=== PATIENT | female | born 1985 | race Caucasian/White ===

== ENCOUNTER 2023-10-18 06:10 | Day surgery (SDC) | payer OTHER, SELFPAY ==
[2023-10-18] VITALS (8 sets, daily range): BP systolic 78–116; BP diastolic 39–63; PULSE 51–92; RESP 12–16; TEMP 36.2–37; O2SAT 97–100
--- OUTSIDE RECORDS SUMMARY | 2023-10-18 06:15 | XMS_ITS | Clinical Summary ---
Author Name Unknown Organization [employer] [facility] Address [place], [place] [address] Care Team Providers Care Urology Teacher Name Role Phone NiloLouise lake MD Primary Care Provider Allergies Active Allergy Reactions Criticality Noted Date Comments Penicillins Rash 12/17/2013 Sulfa (Sulfonamide Antibiotics) 09/24/2006 Sulfasalazine *Unknown - Follow up needed 02/04/2014 Medications Medication Sig Dispensed Refills Start Date End Date Status vitamin-folic acid 1 mg ( RX) tablet/capsule Take 1 tablet by mouth once daily. 0 04/15/2018 Active triamcinolone (ARISTOCORT; KENALOG) 0.1 % creamIndications:Acut e eczema Apply topically to affected area(s) 3 times daily. 80 g 07/22/2018 Active clindamycin 1% (CLEOCIN-T) 1 % lotion APPLY LOTION TOPICALLY TO AFFECTED ACNE AREA(S) TWICE DAILY 04/22/2020 Active cholecalciferol, Vitamin D3, (Vitamin D-3) 5,000 unit tab tablet Take 1 Tablet (5,000 units) by mouth once daily. 0 03/17/2021 Active zinc sulfate (ZINC-15 ORAL) Take by mouth. Active Active Problems Problem Noted Date Diagnosed Date Pap smear for cervical cancer screening 08/10/19 24 Overview: 08/02/2023: NIL/HPV negative Plan: Pap and HPV in 5 years. Encounter for supervision of other normal , third trimester 07/08/2020 06/07/2020 Overview: Component Latest Ref Rng & Units 01/06/2021 HEMOGLOBIN 12.0 - 16.0 g/dL 11.7 (L) MCV 80 - 100 fL 92 Vaginal/Rectal OB Strep B PCR Negative Estimated Date of Delivery: 01/31/21 Patient's last menstrual period was 04/26/2020 (exact date). Last Tdap- 11/04/2020 Last Flu vaccine- 06-04-2020 Glucose (GTT) result- Component Latest Ref Rng & Units 11/04/2020 HEMOGLOBIN 12.0 - 16.0 g/dL 11.2 (L) MCV 80 - 100 fL 93 TREPONEMA PALLIDUM Negative Negative GLUCOSE,GESTATIONAL 65 - 139 mg/dL 136 20 week US: FINDINGS: Sonographic imaging demonstrates a single living intrauterine gestation. Fetus demonstrates a regular cardiac rate of 150 beats per minute. Fetus has a vertex orientation and longitudinal lie. The placenta lies anteriorly without evidence of placenta previa. Amniotic fluid volume appears normal. Single deepest vertical pocket: 4.1 cm. The cervix is closed and measures 3.2 cm in length. The composite ultrasound gestational age is calculated at 21 weeks 0 days with an estimated sonographic due date of January 27, 2021. Allergies Allergen Reactions ? ? Penicillins Rash ? ? Sulfa (Sulfonamide Antibiotics) ? ? Sulfasalazine *Unknown - Follow up needed OB History Para Term AB Living 2 1 1 0 0 1 SAB TAB Ectopic Multiple Live Births 0 0 0 0 1 # Outcome Date GA Lbr Nilton/2nd Weight Sex Delivery Anes PTL Lv 2 Current 1 Term 09/04/18 39w4d 3.15 kg (6 lb 15 oz) F Vag-Spont EPIDURAL JERARDO Name: November Create lab flowsheet for OB labs- Component Latest Ref Rng & Units 06/04/2020 06/04/2020 06/04/2020 1:56 PM 1:56 PM 1:56 PM RUBELLA IGG ANTIBODY Positive 1.32 ANTIBODY SCREEN Negative Negative SPECIMEN EXPIRATION DATE/TIME 06/07/20 23:59 HIV-1/HIV-2 ANTIBODY Non-Reactive Non-Reactive TREPONEMA PALLIDUM Negative Negative HBSAG Nonreactive Nonreactive ABORH O Rh Positive Past Medical History: . Date ? ? No Significant Past Medical History Past Surgical History: . Laterality Date ? ? NO PAST SURGERIES No data on file. Problems (from 06/04/20 to present) No problems associated with this episode. Alberta Fishman RN.....06/07/2020 7:59 AM Resolved Problems Problem Noted Date Diagnosed Date Resolved Date Marginal placenta previa 04/16/201809/2018 Encounter for supervision of normal first , third trimester 02/18/2018 06/07/2020 Overview: Estimated Date of Delivery: 09/07/18 Patient's last menstrual period was 12/01/2017 (exact date). Last Tdap- 06/10/2018 Last Flu vaccine- 02/18/2018 Glucose (GTT) result- Component Latest Ref Rng & Units 06/10/2018 HEMOGLOBIN 12.0 - 16.0 g/dL 11.9 (L) MCV 80 - 100 fL 95 GLUCOSE,GESTATIONAL 65 - 139 mg/dL 75 Component Latest Ref Rng & Units 08/15/2018 Culture No Group B Streptococcus isolated. Allergies Allergen Reactions ? ? Penicillins Rash ? ? Sulfa (Sulfonamide Antibiotics) Obstetric History T0 L0 SAB0 TAB0 Ectopic0 Multiple0 Live Births0 # Outcome Date GA Lbr Nilton/2nd Weight Sex Delivery Anes PTL Lv 1 Current Create lab flowsheet for OB labs- Component Latest Ref Rng & Units 01/07/2018 01/07/2018 01/07/2018 11:33 AM 11:33 AM 11:33 AM ANTIBODY SCREEN Negative Negative SPECIMEN EXPIRATION DATE/TIME 01/10/18 23:59 HEMOGLOBIN 12.0 - 16.0 g/dL 13.6 MCV 80 - 100 fL 93 RUBELLA IGG ANTIBODY Positive 1.47 HEMOGLOBIN A1C SCREENING <6.4 % 4.9 ABORH O Rh Positive HBSAG Nonreactive Nonreactive HEPATITIS C ANTIBODY Non-Reactive Non-Reactive HIV-1/HIV-2 ANTIBODY Non-Reactive Non-Reactive Past Medical History: Diagnosis Date ? ? No Significant Past Medical History Past Surgical History: Procedure Laterality Date ? ? NO PAST SURGERIES No data on file. 1st Problems (from 01/07/18 to present) No problems associated with this episode. YARELY Holder.....02/18/2018 2:33 PM Unspecified personality disorder 02/07/2007 11/26/2020 Encounters Date Type Department Care Team Description 10/01/2023 1:45 PM CDT Ancillary Procedure [facility] [address] [place] [address] 10/01/2023 Travel 09/11/2023 1:30 PM CDT Office Visit [facility] [address] [place] [address] Chelsey Prince MD Consult (Lipoma of chest referred by Dr. Corcoran) 09/11/2023 Travel 08/02/2023 8:50 AM LEATHER CLEANER Office Visit [facility] [address] [place] [address] Louise Corcoran MD Physical (37 yr/Been trying to get ) 08/02/2023 Travel from Last 3 Months Immunizations Name Administration Dates Next Due Influenza, IIV4 03/17/2021,06/04/2020,02/18/2018 ,03/06/2014 Tdap 11/04/2020,06/10/2018,02/04/2014 Family History Medical History Relation Name Comments Good Health Brother 1 Good Health Brother 2 Good Health Father Good Health Mother Relation Name Status Comments Brother 1 Brother 2 Father Mother Social History Tobacco Use Types Packs/Day Years Used Date Smoking Tobacco: Former Cigarettes 0.5 5 Smokeless Tobacco: Never Tobacco Cessation:Counseling Given: Yes Alcohol Use Standard Drinks/Week Comments Yes 1.7 (1 standard drink = 0.6 oz p ure alcohol) rare PHQ-2 Answer Date Recorded PHQ-2 TOTAL SCORE 0 08/02/2023 Social Connections Answer Date Recorded Frequency of Communication with Friends and Fami ly 0 08/02/2023 Financial Resource Strain Answer Date R ecorded Difficulty of Paying Living Expenses 3 08/02/2023 Difficulty of Paying Living Expenses Not on file 08/02/2023 Food Insecurity Answer Date Recorded Worried About Running Out of Food in the Last Ye ar 1 08/02/2023 Transportation Needs Answer Date Record ed Lack of Transportation (Medical) 1 08/02/2023 Housing Stability Answer Date Recorded Unable to Pay for Housing in the Last Year 1 08/02/2023 Sex and Gender Information Value Date Recorded Sex Assigned at Not on file Gender Identity Not on file Sexual Orientation Not on file Obstetrics History Para Term AB IAB SAB Ectopic Multiple Livin g Live Births 3 2 2 1 1 2 2 Date Outcome GA Total Labor Labor/2nd/3rd Weight Sex Delivery Anes PTL Jerardo A1 A5 Name Cl in 09/04 Term 39w 4d 3.15 kg (6 lb 15 oz) F Vag-Spont Epidu ral Lashaun ng Mckayla hardwick Complications:None Delivery Location:[facility] 01/22 Term 38w 5d 5h 30m 3.29 kg (7 lb 4 oz) M Vag Lashaun ng Todd hardwick, Maria Guadalupe Salter MD Complications:None Delivery Location:Hospital ( [facility]) 01/17 SAB Last Filed Vital Signs Vital Sign Reading Time Taken Comments Blood Pressure 91/62 09/11/2023 1:26 PM CDT Pulse 75 09/11/2023 1:26 PM CDT Temperature 36.5 ??C (97.7 ??F) 06/10/2018 9 :00 AM [employer]ATHER CLEANER Respiratory Rate - - Oxygen Saturation 99% 09/11/2023 1:2 6 PM CDT Inhaled Oxygen Concentration - - Weight 59.6 kg (131 lb 6.4 oz) 09/11/19 1:26 PM CDT with shoes Height 176.5 cm (5' 9.5) 08/02/2023 9: 01 AM [employer]ATHER CLE[employer]ER Body Mass Index 19.13 08/02/2023 9:01 AM LEATHER CLEANER Plan of Treatment Upcoming Encounters Date Type Department Care Team (Late st Contact Info) Description 10/18/2023 8:00 AM CDT Office Visit [facility] [address] [place] [phone] Chelsey Prince MD [address] [place] [address] Health Maintenance Due Date Last Done Comments COVID-19 vaccine series ( season) 2023 Influenza for age 9-49 02/24/2024 , 06/04/2020, 02/18/2018, Additional history exists BMI (ht and wt on same day) for age 18+ 08/02/2024 08/02/2023, 06/04/2020, 02/18/2018 Depression screening for age 12+ 08/02/2024 08/02/2023, 03/17/2021, 06/04/2020, Additional history exists Pap test for age 21-65 08/02/2028 , 08/02/2023, 04/04/2017 (Completed outside of [facility]) Tetanus booster 11/04/2030 11/04/2020, 05/25, 02/04/2014 Hepatitis C screening for age 18-79 Completed 01/07/2018 HIV for age 15-65 Completed 06/04/2020, 01/07/2018 Tdap Completed 11/04/2020, 05/25, 02/04/2014 Pneumococcal series for age 6-64 Aged Out No longer eligible based on patient's age to complete this topic Procedures Procedure Name Priority Date/Time Associated Diagnosis Comments US ABDOMEN SOFT TISSUE Routine 10/01/2023 1:44 PM CDT Lipoma of lateral chest wall ART INSTALLER THIN PREP PAP SCREEN IMAGED Routine 08/02/2023 9:20 AM [employer] Screening for cervical cancer HPV THIN PREP Routine 08/02/2023 9:20 AM [employer] CLE[employer]ER Screening for cervical cancer ANTI HIV 1/2 Routine 06/04/2020 1:56 PM [employer]ATHER CLE[employer]ER Initial obstetric visit in first trimester ANTI HCV Routine 01/07/2018 11:33 AM CDT Encounter for supervision of normal first in first trimester from Last 3 Months or Most Recently Relevant to Health Maintenance Results * US ABDOMEN SOFT TISSUE (10/01/2023 1:44 PM CDT) Anatomical Region Laterality Modality Abdomen Ultrasound 10/01/2023 2:38 PM CDT Narrative 10/01/2023 2:38 PM CDT For Patients: ??As a result of the Century Cures Act, medical imaging exams and procedure reports are released immediately into your electronic medical record. ??You may view this report before your referring provider. ??If you have questions, please contact your health care provider. Indication: Lipoma of the lateral chest wall Technique: Grayscale ultrasound of the right lateral chest wall performed. Comparison: None Findings: Circumscribed isoechoic mass within the subcutaneous fat measuring 3.7 x 3.2 x 1.5 cm. No fluid collection or suspicious mass. Impression: Subcutaneous lipoma. Dictated by Jacob Min MD @ 10/01/2023 2:38:07 PM (Electronically Signed) Procedure Note Jacob Min MD - 10/01/2023 For Patients: As a result of the Cures Act, medical imagingexams and procedure reports are released immediately into your electronicmedical record. You may view this report before your referring provider.If you have questions, please contact your health care provider. Indication: Lipoma of the lateral chest wall Technique: Grayscale ultrasound of the right lateral chest wall performed. Comparison: None Findings: Circumscribed isoechoic mass within the subcutaneous fat measuring 3.7 x3.2 x 1.5 cm. No fluid collection or suspicious mass. Impression: Subcutaneous lipoma. Dictated by Jacob Min MD @ 10/01/2023 2:38:07 PM (Electronically Signed) Chelsey Prince MD US * ART INSTALLER THIN PREP PAP SCREEN IMAGED [[id number]] (08/02/2023 9:20 AM LEATHER CLEANER) Case Report Gynecologic Cytology Report ? Case: [id number] ? Authorizing Provider: ??Louise Corcoran MD Collected: ? 08/02/2023 0920 ? Ordering Location: ? [facility] ?? Received: ?08/02/2023 0958 ? Clinic ? First Screen: ?Sandhya Guevara ? Specimen: ?ART INSTALLER ThinPrep Vial Screening, Cervical ? 08/09/2023 8:47 AM [facility] [employer] LABORATORY-C ENTRAL LABORATORY INTERPRETATION/ RESULT NEGATIVE FOR INTRAEPITHELIAL LESION OR MALIGNANCY (NIL) (none) 08/09/2023 8:47 AM [facility] [employer]-C ENTRAL LABORATORY IMEN ADEQUACY Satisfactory for evaluation Endocervical component present 08/09/2023 8:47 AM [facility] [employer] LABORATORY-C ENTRAL LABORATORY HPV REQUEST HPV and PAP 08/09/2023 8:47 AM [facility] [employer] LABORATORY-C ENTRAL LABORATORY Date of LMP 07/08/2023 08/09/2023 8:47 AM [employer] LABORATORY-C ENTRAL LABORATORY Last Pap Date 202008/09/2023 8:47 AM LE[employer]ER [employer]ER [employer] LABORATORY-C ENTRAL LABORATORY Last Pap Result NIL 8:47 AM [facility] [employer] ENTRAL LABORATORY Abnormal Pap or [place] Bx in last 5 years No 08/09/2023 8:47 AM [facility] [employer] LABORATORY-C ENTRAL LABORATORY Menstrual Status Regular Periods 08/09/2023 8:47 AM [facility] [employer] LABORATORY-C ENTRAL LABORATORY [place] Bx Done Today No 08/09/2023 8:47 AM [employer] [facility] Additional Information None given 08/09/2023 8:47 AM LEATHER CLEANER [facility] ENTRDC LABORATORY Comment: Cytology is screened at [facility] - [address], [place] [address] and [facility] - [address], [place] [address] and [facility] - [address] [place] [address] Interpreted at [facility] - [address] [place] [address] Automated Review Successful 08/09/2023 8:47 AM LEATHER CLE[employer]ER [facility] ENTRDC LABORATORY Comment:Specimen processed s uccessfully by automated colorer device, [employer] System, [employer] ANCILLARY TESTING ART INSTALLER HPV Ordered, Please see separate report 08/09/2023 8:47 AM [employer]ATH[employer]ER [facility] Note The pap test is a screening technique, not a diagnostic procedure. It is used primarily to screen for squamous cancers and precursor lesions. Published studies have shown that it is subject to both false negative and false positive results. The pap test should not be used as the sole means to diagnose or exclude pre-malignant and malignant lesions. 08/09/2023 8:47 AM LEATHER CLE[employer]ER [facility] Other (Cervical) Non-Blood / Unknown 08/02/2023 9:20 AM LEATHER CLE[employer]ER 08/02/2023 9:58 AM [employer] CLE[employer]ER Louise Corcoran MD PATHOLOGY/CYTOL OGY [facility] [address] [place] [address], * HPV HIGH RISK (08/02/2023 9:20 AM LEATHER CLEANER) TYPE 16 Negative Negative 08/06/2023 5:35 PM LEATHER CLE[employer]ER [facility] TR[facility] LABORATORY TYPE 18 Negative Negative 08/06/2023 5:35 PM LEATHER CLEANER [facility] TR[facility] LABORATORY OTHER HIGH RISK TYPES Negative Negative 08/06/2023 5:35 PM LEATHER CLEANER [facility] TRAL LABORATORY Other (Cervical) Non-Blood / Unknown 08/02/2023 9:20 AM LEATHER CLEANER 08/02/2023 4:32 PM LEATHER CLEANER Narrative [facility] - 08/06/2023 5:35 PM LEATHER CLEANER HPV types 16, 18, 31, 33, 35, 39, 45, 51, 52, 56, 58, 59, 66 and 68 DNA were undetectable or below the pre-set threshold. Methodology: Hany Duncan 4800 HPV Test Louise Corcoran MD MICROBIOLOGY [facility] [address] [place] [address], * ANTI HIV 1/2 (06/04/2020 1:56 PM LEATHER CLEANER) Pathologist [facility] HIV-1/HIV-2 ANTIBODY Non-Reacti ve Non-Reacti ve 06/04/2020 8:05 PM LEATHER CLEANER [facility] TRAL LABORATORY Comment:HIV-1 p24 and HIV-1/ HIV-2 Ab not detected. Blood BLOOD SPECIMEN / Unknown Venipuncture / Unknown 06/04/2020 1:56 PM LEATHER CLEANER 06/04/2020 1:57 PM LEATHER CLE[employer]ER Louise Corcoran MD SEND OUTS Performing Organization Address [facility]/ZIP Co de Phone Number [facility] [address] [place] [address], [place] * ANTI HCV (01/07/2018 11:33 AM CDT) Pathologist [facility] HEPATITIS C ANTIBODY Non-React flores Non-React flores 01/07/2018 6:23 PM CDT [facility] TRAL LABORATORY Comment:Antibodies to HCV no t detected; does not exclude the possibility of exposure to HCV. Blood BLOOD SPECIMEN / Unknown Venipuncture / Unknown 01/07/2018 11:33 AM CDT 01/07/2018 11:34 AM CDT Amanda WINTERS SEND OUTS [facility] [address] [place] [address], [place] from Last 3 Months or Most Recently Relevant to Health Maintenance Care Teams Urology Teacher Relationship Specialty Start Date End Date Louise Corcoran MD [address] [place] [address] PCP - General Family Practice 02/18/18
[2023-10-18] MEDS: LACTATED RINGERS 1000 ML 1,000 ML 100 ML IV (06:30)
[2023-10-18] MEDS: SODIUM CHLORIDE 0.9 % (FLUSH) 10 ML SYRINGE IVF (06:30)
[2023-10-18 06:41] LABS: Ur HCG Qualitative* Negative (Negative)
--- NOTE | 2023-10-18 07:25 | PM.GSHP ---
History of Present Illness History of Present Illness Date Seen: 10/18/23 Chief complaint: Surgery Narrative: Alejo Manzo is a 38 year old female who presents today for excision of a right chest wall mass. This note is to update her H& P. He has had no recent illness, no cough, no upper respiratory symptoms. No shortness of breath. She has no medical issues and has not ever had surgery. [facility] Social History Smoking Status: Current some day smoker What tobacco products do you use: cigarettes How often do you have a drink containing alcohol: 2-4 times a month How many standard drinks containing alcohol do you have on a typical day: 1 or 2 How often do you have six or more drinks on one occasion: Never AUDIT-C Alcohol total score: 2 Non-prescribed substance use: denies use Caffeine: Yes (coffee 1-2c/day) Are you using contraception or practicing any form of control: No Meds Home Medications and Allergies Home Medications Medication Instructions Recorded Confirmed Type cholecalciferol (vitamin D3) 125 5,000 unit PO DAILY 10/16/23 10/18/23 History mcg (5,000 unit) capsule vits no.130-ferrous fum 1 tab PO DAILY 10/16/23 10/18/23 History 27 mg iron-folic acid 800 mcg tablet ( Vitamin) zinc sulfate 66 mg tablet (Zinc-15) 66 mg PO DAILY 10/16/23 10/18/23 History Allergies Allergy/AdvReac Type Severity Reaction Status Date / Time Penicillins Allergy Rash Verified 10/18/23 06:25 Sulfa (Sulfonamide Allergy Verified 10/18/23 06:25 Antibiotics) Exam Narrative: Exam Narrative: General: No acute distress CV: Regular rate and rhythm Respiratory: Clear to auscultation bilaterally Chest: Clinically 7 cm rubbery, mobile mass on right chest wall below the breast. Progress Note:A&P Assessment and plan (1) Mass of right chest wall: Status: Acute Plan The patient is a 38-year-old female with a right chest wall mass here today for excision. She is cleared for surgery.
--- NOTE | 2023-10-18 07:29 | P.GSOP_ITS ---
Operative Note Date of procedure: 10/18/23 Pre-op diagnosis: Right chest wall mass Post-op diagnosis: Same Type of Procedure: Excision of right chest wall lipoma, 10 x 12 x 1 cm Indications: The patient is a 38-year-old female who presented to clinic with an enlarging chest wall mass. Ultrasound revealed this to be a lipoma. Clinically it was much larger than the ultrasound appearance, and it has been increasing in size, therefore I recommended excision. Procedure Description: After discussing the risks and benefits of the procedure, the patient signed informed consent.? The operative site was marked and the patient was brought to the operating room and placed on the operating table in supine position.? Care was taken to pad the patient's pressure points.?? The patient was then given sedation by anesthesia.?? The operative site was then prepped and draped in the usual sterile fashion.? A time-out was then performed. Local anesthetic was injected into the skin and subcutaneous tissue overlying the mass. Incision was made following Jessica's lines. Dissection was taken rosales n into the subcutaneous. The mass was encountered. This was dissected from the subcutaneous tissue using a combination of blunt dissection and cautery. The mass was a very large, multi lobulated lipomatous appearing mass. This was superior to the muscle fascia. The mass was removed intact. This was measured, measuring 10 x 12 x 1 cm. This was sent to pathology. The wound was examined. Hemostasis appeared excellent. 3-0 [address] was used to place interrupted suture, closing the subcutaneous space. 3-0 Vicryl dermal sutures were then placed followed by 4-0 Monocryl in a running subcuticular fashion. Sterile dressings were then applied. ? The patient was then woken and transported to the recovery area in stable condition. ? The patient tolerated the procedure well. Findings: 10 x 12 cm lipoma. Anesthesia: MAC Surgeon: Chelsey Prince MD Estimated blood loss (mL): 1 Specimen: Other Additional Specimen Information: Right chest wall lipoma Condition: stable Disposition: PACU
[2023-10-18] MEDS: BUPIVACAINE 0.25% 30 ML INJECTION (07:40)
--- NOTE | 2023-10-18 08:17 | W.ANESCHARGE ---
Anesthesia Charges Start Date/Time Anesthesia Start Date: 10/18/23 Anesthesia Start Time: 07:23 Stop Date/Time Anesthesia Stop Date: 10/18/23 Anesthesia Stop Time: 08:15
--- NOTE | 2023-10-18 08:51 | W.ANESCHARGE ---
Anesthesia Charges Start Date/Time Anesthesia Start Date: 10/18/23 Anesthesia Start Time: 07:23 Stop Date/Time Anesthesia Stop Date: 10/18/23 Anesthesia Stop Time: 08:15
[2023-10-18] MEDS: KETOROLAC 15 MG/ML inj IVP (09:12)
== END 2023-10-18 09:40 | disposition home or self-care (01) ==
PROVIDERS: PCP Family Medicine; Visit Provider Surgery
PROC: (CPT 21552; principal; 2023-10-18 07:30)
DX: D17.1 Benign lipomatous neoplasm of skin and subcutaneous tissue of trunk (principal)
CPT/HCPCS: 21552; 00400; 81025; 88304; J0665; J1100; J1885; J2405; J2704; J3010; J7120